=== PATIENT | male | born 1945 | race Caucasian/White ===

== ENCOUNTER 2022-03-21 17:07 | Observation (INO) | payer OTHER ==
--- OUTSIDE RECORDS SUMMARY | 2022-03-21 17:21 | XMS REPORT | Continuity of Care Document ---
:1945 Author Organization [facility] t Address [address] [place] [address] Care Team Providers Name Role Phone STEWART VARELA Primary Care Physician Unavailable KIARRA PARIKH Attending Clinician Unavailable CONNOR ROBERTS Attending Clinician Unavailable Connor Roberts MD Attending Clinician Doctor Unassigned, [place] Attending Clinician Unavailable Eliana Barros RN Attending Clinician Unavailable ANAMIKA ZAPATA Attending Clinician Unavailable Mague Chavez Attending Clinician Anamika Zapata MD Attending Clinician Nurse, [facility] Attending Clinician Unavailable Jennifer Ceballos Attending Clinician JENNIFER NUNEZ Attending Clinician Unavailable Eladio Conde RN Attending Clinician Unavailable Ying Liao Attending Clinician Galina Mack MD Attending Clinician Lab, [facility] Attending Clinician Unavailable Shraddha Velasquez Attending Clinician SHRADDHA DELVALLE Attending Clinician Unavailable Provider, [facility] Attending Clinician Unavailable Stewart Varela MD Attending Clinician YING SANTOS Attending Clinician Unavailable GALINA MACK Attending Clinician Unavailable PATRICIA HAJI Attending Clinician Unavailable ROCHELLE THOMAS Attending Clinician Unavailable Rochelle Tovar Attending Clinician 2, [facility] Lab Attending Clinician Unavailable Pc, [facility] Vascular Room 1 - Attending Clinician Unavailable Kiarra Parikh MD Attending Clinician Only, Ad[facility] Test Attending Clinician Unavailable Daniel Robin MD Attending Clinician DANIEL ROBIN Attending Clinician Unavailable KIARRA PARIKH Admitting Clinician Unavailable ANAMIKA ZAPATA Admitting Clinician Unavailable Anamika Zapata MD Admitting Clinician Kiarra Parikh MD Admitting Clinician Payers Payer Name Policy Type Policy Number Effective Date Expiration Date S [facility] MEDICARE PART A \T\ [id number] 2012 B 00:00:00 AGENCY GENERIC [id number] 2013 00:00:00 MEDICO SUPPLEMENT [id number] 2018 00:00:00 COMMERCIAL [id number] 2013 NON-CONTRACT 00:00:00 GENERIC Problems Condition Condition Condition Status Onset Resolution Last Treating Co mments Source Name Details Category Date Date Treatment Clinician Date 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 7-13 ity of 00:00: [place] 00 Medical Branch Coronary Coronary Disease Active Unive rs artery artery 3-03 ity of disease disease 00:00: [place] involving involving 00 Med[place] coronary coronary artery of artery of [place] heart heart without without angina angina pectoris pectoris Impacted Impacted Disease Active Unive rs cerumen of cerumen of 4-28 it y of right ear right [place] History of History of Disease Active U nivers stroke stroke 4-28 ity of 00:00: [place] 00 Medical Branch Essential Essential Disease Active Uni vers hypertensi hypertensi 4-28 it y of on on 00:00: [place] 00 Medical Branch Stroke Stroke Disease Active 2014-06 Univers syndrome syndrome 2-15 ity of 00:00: [address] Allergies, Adverse Reactions, Alerts Allergy Allergy Status Severity Reaction(s) Onset Inactive Treating Comm ents Source Name Type Date Date Clinician Hydrochl Propensi Active Other - See 2019-06 Rising U nivers orothiaz ty to comments 0- BUN and ity o f dinora adverse 00:00: Cr [place] reaction 00 [facility] s Branch HYDROCHL DRUG Active Other-Cmnt 2019-06 Univ ers OROTHIAZ INGREDI 0-26 ity of [place] 00:00: [address] Social History Social Habit Start Date Stop Date Quantity Comments Source Exposure to 2021-12-17 2021-12-27 Not sure [facility] SARS-CoV-2 00:00:00 07:53:00 [facility] (event) [place] Alcohol intake 2021-12-27 2021-12-27 .14 /d [facility] 00:00:00 00:00:00 [facility] Tobacco use and 2015-07-01 2015-07-01 Smokeless tobacco Un iversity of exposure 00:00:00 00:00:00 non-user [facility] Sex Ass[birth year] Universit y of 00:00:00 00:00:00 [facility] Smoking Status Start Date Stop Date Source Never smoked tobacco [facility] Medications Ordered Filled Start Stop Current Ordering Indication Dosage Frequency Signature Comments Components Source Medication Medication Date Date Medication? Clinician (SIG) Name Name docusate Yes [id number] 100mg Take 1 U nivers 100 mg 7-13 capsule by ity of capsule 00:00: mouth in [place] 00 the Medical morning Branch and 1 capsule in the evening. famotidine Yes [id number] 20mg Take 1 Univers 20 mg 7-13 tablet by ity of tablet 00:00: mouth in [place] 00 the Medical morning Branch and 1 tablet in the evening. levETIRAcet 2021- No [id number] 500mg Take 1 Univers am 500 mg 7-13 07-28 tablet by ity of tablet 00:00: 04:59 mouth in [place] 00 :00 the Medical morning Branch and 1 tablet in the evening. Do all this for 14 days. cetirizine Yes [id number] 10mg Take 1 U nivers (ZYRTEC) 10 6-15 tablet by ity of mg tablet 00:00: mouth 00 daily. Medical Branch benzonatate Yes [id number] 200mg Take 1 Univers 200 mg 6-15 capsule by ity of capsule 00:00: mouth 3 00 (three) Medical times Branch daily as needed for Cough. atorvastati Yes [id number] 80mg Take 1 Univers n 80 mg 5-19 tablet by ity of tablet 00:00: mouth 00 daily. Medical Branch amLODIPine Yes 10mg Take 1 Unive rs 10 mg 2-01 tablet by ity of tablet 00:00: mouth 00 daily. Medical Branch losartan 50 Yes 50mg Take 1 Univ ers mg tablet 4-28 tablet by ity o f 00:00: mouth 00 daily. Medical Branch carvediloL Yes 6.25mg Take 1 Uni vers 6.25 mg 3-03 tablet by ity of tablet 00:00: mouth 2 (two) Medical times Branch daily with meals. azelastine Yes [id number] 1{spray Use 1 Univers 137 mcg 6-07 } [place] in ity of (0.1 %) 00:00: each [place] nasal spray 00 nostril 2 Med ical (two) Branch times daily. Use in each nostril as directed Immunizations Ordered Filled Immunization Date Status Comments Sour e Immunization Name Name Td 2021-12-14 Completed [facility] 00:00:00 [facility] SARS-COV-2 COVID-19 2020-07-14 Completed Unive rsity of MODERNA VACCINE 00:00:[address] [facility] ical Branch SARS-COV-2 COVID-19 2020-06-16 Completed Unive rsity of MODERNA VACCINE 00:00:00 [facility] Td 2017-12-14 Completed [facility] 00:00:00 [facility] Vital Signs Vital Name Observation Time Observation Value Comments Source Systolic blood 2021-12-27 16:37:00 145 mm[Hg] Univer sity of pressure [facility] Diastolic blood 2021-12-27 16:37:00 77 mm[Hg] Unive rsity of pressure [facility] Heart rate 2021-12-27 16:36:00 81 /min Universi ty of [facility] Body temperature 2021-12-27 16:36:00 36.94 [facility] Respiratory rate 2021-12-27 16:36:00 18 /min [facility] Body height 2021-12-27 16:36:00 172.7 cm [facility] Body weight 2021-12-27 16:36:00 72.167 kg [facility] BMI 2021-12-27 16:36:00 24.19 kg/m2 [facility] Oxygen saturation in 2021-12-27 16:36:00 97 /min [facility] Arterial blood by [facility] Pulse oximetry [place] Procedures This patient has no known procedures. Encounters Start End Encounter Admission Attending Care Care Encounter Source Date/Time Date/Time Type Type Clinicians Facility Department ID 2021-04-02 Outpatient R ARELY RUST SIRISHA [id number] Univers 04:15:47 EKIARRA ity [facility] 2021-12-27 2021-12-27 [place] [id number] Univers 11:20:00 11:47:24 CONNOR ity [facility] 2021-12-27 2021-12-27 [facility] 1.2.840.114 [id number] Univers 11:20:00 11:47:24 Care [facility] [id number] it y of [place] 4.2.7.2.686 Jovany as FEROZ?BLEA [phone] [address] MEDICAL OFFICE BUILDING 2021-12-27 2021-12-27 Outpatient [place] [id number] Univers 11:20:00 11:47:24 CONNOR ity [facility] 2021-12-27 2021-12-27 Orders Doctor MARLENA 1.2.840.114 [id number] Univers 00:00:00 00:00:00 Only Unassigned, IVET 350.1.13.10 ity of [place] [facility] 4.2.7.2.686 Jovany as [phone] [place] [address] Branch 2021-12-16 2021-12-16 Transition ONLAN Barros 1.2.840.114 [id number] Univers 00:00:00 00:00:00 of Care Eliana ARMENTA 350.1.13.10 it y of [place].2.7.2.[place] [phone] [facility] 403 Branch 2021-12-14 2021-12-15 Outpatient X ANAMIKA ZAPATA RUST SNS [id number] Univers 17:59:00 17:11:00 ity of [facility] 2021-12-14 2021-12-15 Emergency Karthikeyan Mcdonnellkayla Ward TRICE 1.2.840.1 [id number] Univers 17:59:00 17:11:00 Anamika Zapata 350.1.13.10 ity of [facility] 4.2.7.2.686 Jovany as [phone] [facility] 100 Branch 2021-12-14 2021-12-14 Outpatient [place] [id number] Univers 17:30:00 17:55:01 [facility] 2021-12-14 2021-12-14 Nurse Nurse, [facility] [place] 1.2.840.114 [id number] Univers 17:30:00 17:50:00 Visit Armando [employer] 350.1.13.10 ity [facility] 4.2.7.2.686 [place]ov[place] as FEROZ?BLEA [phone] [address] MEDICAL OFFICE [facility] 2021-12-14 2021-12-14 Outpatient R [place] [id number] Univers 17:30:00 17:30:00 CONNOR mack [facility] 2021-11-17 2021-11-17 Urgent EnriqueJennifer trammell [place] 1.2.840. 114 [id number] Univers 11:20:00 11:40:00 Care Armando [facility] 350.1.13.10 ity [facility] 4.2.7.2.686 Jovany as FEROZ?BLEA [phone] [address] MEDICAL OFFICE [facility] 2021-11-17 2021-11-17 Outpatient [place] [id number] Univers 11:20:00 11:20:00 JENNIFER mack o f [facility] 2021-10-21 2021-10-21 Nurse MARLENA Conde [id number] Univers 00:00:00 00:00:00 Triage Eladio IVET 350.1.13.10 it y of HOSPITAL 4.2.7.2.686 Jovany as [phone] [facility] 019 [place] 2021-10-21 2021-10-21 Telephone Clemencia [place]UST [id number] Univers 00:00:00 00:00:00 Ying JOYCE 350.1.13.10 i ty of [place] [phone] Sd dical NAL 044 [facility] 2021-07-06 2021-07-06 Refill Frederick [place]UST 1.2.840.114 [id number] Univers 00:00:00 00:00:00 Qiamaria victoria JOYCE 350.1.13.10 ity of [place] [phone] Sd dical NAL 059 [facility] 2021-03-24 2021-03-24 [facility] 1.2.840.114 [id number] Univers 00:00:00 00:00:00 Secure Msg Ying Health 350.1.13.10 ity of [place] 4.2.7.2.686 Jovany as Feroz?Blea [phone] [facility] 044 [place] [facility] 2021-01-04 2021-01-04 Orders Doctor MARLENA 1.2.840.114 [id number] Univers 00:00:00 00:00:00 Only Unassigned, IVET 350.1.13.10 ity of [place] [facility] 4.2.7.2.686 Jovany as [phone] [facility] 009 [place] 2020-12-30 2020-12-30 Refill Clemencia [place] 1.2.840.114 [id number] Univers 00:00:00 00:00:00 Ying Health 350.1.13.10 it y of [place] 4.2.7.2.686 Jovany as Professio [phone] [address] One 2020-12-23 2020-12-23 Market Development Analyst Lab, Adc Fam Pob I [place]UST 1.2. 840.114 [id number] Univers 10:58:24 11:18:24 Visit Shraddha Delvalle Health 350.1.13.10 ity of [place] 4.2.7.2.686 Jovany as Professio [phone] [address] One 2020-12-23 2020-12-23 Office [facility] 1.2.840.114 [id number] Univers 10:27:46 10:58:51 Visit Shraddha [facility] 350.1.13.10 i ty of [place] 4.2.7.2.686 Jovany as Professio [phone] [address] One 2020-12-23 2020-12-23 Outpatient [place] [id number] Univers 10:30:00 10:30:00 SHRADDHA faheem [facility] 2020-12-22 2020-12-22 Telephone Clemencia [place] [id number] Univers 00:00:00 00:00:00 Ying Health 350.1.13.10 it y of [place] 4.2.7.2.686 Jovany as Professio [phone] [address] 2020-12-10 2020-12-10 Urgent Provider, [facility] [place] 1.2.840.114 [id number] Univers 10:13:45 10:58:36 Care Shraddha [facility] 350.1.13.10 ity of [place] 4.2.7.2.686 Jovany as Professio [phone] [address] One 2020-12-10 2020-12-10 Outpatient [place] [id number] Univers 10:20:00 10:20:00 SHRADDHA faheem [facility] 2020-12-10 2020-12-10 Orders Doctor MENDIOLA 1.2.840.114 [id number] Univers 00:00:00 00:00:00 Only Unassigned, IVET 350.1.13.10 ity of [place] [facility] 4.2.7.2.686 Jovany as [phone] [facility] 009 [place] 2020-12-10 2020-12-10 Telephone Provider, [place] 1.2.840.114 [id number] Univers 00:00:00 00:00:00 Ang [facility] 350.1.13.10 ity of Care [place] 4.2.7.2.686 Jovany as Professio [phone] [facility] 044 [place] Office Building One 2020-11-17 2020-11-17 Orders Doctor MARLENA 1.2.840.114 [id number] Univers 00:00:00 00:00:00 Only Unassigned, IVET 350.1.13.10 ity of [place] [facility] 4.2.7.2.686 Jovany as [phone] [facility] 009 [place] 2020-09-30 2020-09-30 Patient Raghavendra [place] 1.2.840.114 [id number] Univers 00:00:00 00:00:00 Secure Msg [facility] 350.1.13.10 ity of [place] 4.2.7.2.686 Jovany as Professio [phone] [facility] 044 [facility] One 2020-09-30 2020-09-30 Refill [place] RUST 1.2.840.114 [id number] Univers 00:00:00 00:00:00 Galina Joyce 350.1.13.10 ity of [place] Profess[place] [phone] Sd dicco nal 059 [facility] 2020-09-24 2020-09-24 [facility] 1.2.840.114 [id number] Univers 12:13:59 23:59:00 Encounter Ying Joyce 350.1.13.10 ity of [place]2.[place].2.686 [place] [phone] [facility] 807 [place] 2020-09-24 2020-09-24 Office [facility] 1.2.840.114 [id number] Univers 11:29:55 13:32:02 Visit Ying [facility] 350.1.13.10 it y of [place] 4.2.7.2.686 Jovany as Professio [phone] Sd dical nal 044 [place] Office Building One 2020-09-24 2020-09-24 Outpatient Denia NIURKAALEXANDRO [facility] [id number] Univers 11:30:00 11:30:00 YING mack [facility] 2020-09-24 2020-09-24 Orders Doctor MENDIOLA 1.2.840.114 [id number] Univers 00:00:00 00:00:00 Only Unassigned, IVET 350.1.13.10 ity of [facility] 4.2.7.2.686 Jovany as [phone] [address] 2020-09-09 2020-09-09 Outpatient [place] [id number] Univers 14:00:00 14:00:00 GALINA mack o f [facility] 2020-08-05 2020-08-05 [facility] 1.2.840.114 [id number] Univers 11:18:19 11:40:42 Visit Galina Joyce 350.1.13.10 ity of [place] [phone] Sd nasreen nal 059 [facility] 2020-08-05 2020-08-05 Outpatient R FREDERICK, [facility] [id number] Univers 11:20:00 11:20:00 GALINA mack o f [facility] 2020-07-14 2020-07-14 Outpatient Denia HAJI [facility] [id number] Univers 12:20:00 12:20:00 PATRICIA springy [facility] 2020-06-16 2020-06-16 Outpatient Denia HAJI [facility] [id number] Univers 12:30:00 12:30:00 PATRICIA y [facility] 2020-06-03 2020-06-03 [facility] 1.2.840.114 [id number] Univers 10:11:15 10:36:00 [facility] 350.1.13.10 ity of [place].2.[place] Profess[place] [phone] Sd dical nal 059 [facility] 2020-06-03 2020-06-03 Outpatient R FREDERICK [facility] [id number] Univers 10:20:00 10:20:00 GALINA bauman [facility] 2020-05-28 2020-05-28 Outpatient R JOHN [facility] [id number] Univers 16:00:00 16:00:00 ROCHELLE frederick martha bauman [facility] 2020-05-28 2020-05-28 Laboratory Lab, [facility] Pob I RUST 1.2. 840.114 [id number] Univers 13:21:08 13:41:08 Only Bianka Thomasly [facility] 350.1.13.10 ity of [place] 4.2.7.2.686 Jovany as Professio [phone] Sd dical nal 044 [facility] One 2020-05-04 2020-05-04 Market Development Analyst 2, [facility] Lab [place] 1.2.840.114 [id number] Univers 11:34:50 11:49:50 Visit Galina Mack 350.1.13.10 ity of [place].2.[place] [phone] Sd dical dandy 353 [facility] 2020-05-04 2020-05-04 Appointmen Pc, [facility] Vascular Room 1 - [place] 1.2.840.114 [id number] Univers 10:46:48 11:32:01 t Galina Mack 350.1.13.10 ity of [place]2.7.2.[place] Profess[place] [phone] Sd dical nal 059 [facility] 2020-05-04 2020-05-04 Market Development Analyst Pc, [facility] Vascular Room 1 - [place] 1.2.840.114 [id number] Univers 10:46:08 11:31:52 Visit Galina Mack 350.1.13.10 ity of [place].2.[place] [phone] Sd dical nal 059 [facility] 2020-05-04 2020-05-04 Office Frederick, [place] 1.2.840.114 [id number] Univers 10:01:27 10:47:29 Visit Galina [place] 350.1.13.10 ity of [place].2.7.2.[place] Profess[place] [phone] [address] 2020-05-04 2020-05-04 Outpatient R [facility] [id number] Univers 10:00:00 10:00:00 GALINA ity o f [facility] 2020-03-30 2020-03-30 Office [facility] 1.2.840.114 [id number] Univers 08:25:42 09:01:34 Visit Galina [place] 350.1.13.10 ity of [place].2.[place] Profess[place] [phone] [address] 2020-03-30 2020-03-30 Outpatient R [facility] [id number] Univers 08:40:00 08:40:00 GALINA springy o f [facility] 2020-03-26 2020-03-26 Outpatient R [facility] [id number] Univers 08:40:00 08:40:00 GALINA springy o [facility] 2020-03-26 2020-03-26 Telephone [facility] 1.2.165.118 [id number] Univers 00:00:00 00:00:00 Enricomiguejun [place] 350.1.13.10 ity of [place] 4.2.7.2.[place] Profess[place] [phone] [address] 2020-03-16 2020-03-16 Refill [facility] 1.2.840.114 [id number] Univers 00:00:00 00:00:00 Qiangjun [place] 350.1.13.10 ity of [place].7.2.[place] Profess[place] [phone] [address] 2019-12-19 2019-12-19 Orders Doctor MARLENA 1.2.840.114 [id number] Univers 00:00:00 00:00:00 Only Unassigned, IVET 350.1.13.10 ity of [place] [facility] 4.2.7.2.686 Jovany as [phone] [facility] 009 [place] 2019-12-12 2019-12-12 Hospital Arely [place] 1.2.840.114 [id number] Univers 06:56:00 09:58:00 Encounter Kiarra clark 350.1.13.10 ity of [place]2.[place].2.[place] [phone] [facility] 071 [place] 2019-12-12 2019-12-12 Telephone Arely MENDIOLA 1.2.840.114 [id number] Univers 00:00:00 00:00:00 Kiarra clark 350.1.13.10 ity of HOSPITAL 4.2.7.2.686 Jovany as [phone] [facility] 019 [place] 2019-12-11 2019-12-11 Laboratory Only, Adc Test [place] 1.2.840. 114 [id number] Univers 14:44:30 14:59:30 Only Kiarra Parikh 350.1.1 3.10 ity of [place] 4.2.[place].2.[place] [phone] [facility] 353 [place] 2019-12-11 2019-12-11 Outpatient R [facility] [id number] Univers 14:30:00 14:30:00 ity of [facility] 2019-12-10 2019-12-10 Outpatient [place] [id number] Univers 10:20:00 10:20:00 GALINA mack o f [facility] 2019-12-10 2019-12-10 Orders Doctor MARLENA 1.2.840.114 [id number] Univers 00:00:00 00:00:00 Only Unassigned, IVET 350.1.13.10 ity of [place] [facility] 4.2.7.2.686 Jovany as [phone] [address] 2019-08-22 2019-08-22 Office Mynor [place] 1.2.840.114 [id number] Univers 10:11:52 10:42:04 Visit VeronicaAMS-Qi [employer] 350.1.13.10 ity of [place] 4.2.7.2.686 Jovany as Professio [phone] Sd dical [place] [address] Branch Office Building One 2019-08-22 2019-08-22 Outpatient Denia ROBIN [facility] [id number] Univers 10:15:00 10:15:00 DANIEL bauman [facility] 2019-08-22 2019-08-22 Orders Doctor MARLENA 1.2.840.114 [id number] Univers 00:00:00 00:00:00 Only Unassigned, IVET 350.1.13.10 ity of [place] [facility] 4.2.7.2.686 Jovany as [phone] [address] 2018-12-13 2018-12-13 Outpatient Denia MACK [facility] [id number] Univers 07:45:00 07:45:00 GALINA bauman [facility] 2018-12-04 2018-12-04 Outpatient R ENRIQUE [facility] [id number] Univers 12:25:48 23:59:00 JENNIFER bauman [facility] Results This patient has no known results.
--- NOTE | 2022-03-21 19:23 | RAD REPORT ---
EXAM DESCRIPTION: RAD - Chest Single View - 03/21/2022 7:08 pm CLINICAL HISTORY: stroke-like symptoms Chest pain. COMPARISON: No comparisons FINDINGS: Portable technique limits examination quality. The lungs are grossly clear. The heart is normal in size. No displaced fractures.Aortic atheroscleros is. IMPRESSION: No acute intrathoracic process suspected.
[2022-03-21] MEDS ORDERED: NA CHLORIDE 0.9% 1,000 ML ONE (19:45)
[2022-03-21 19:58] LABS: Absolute Lymphocytes (CBC) 1.2 K/uL (0.7-4.9); Hematocrit 41.5 % (39.6-49.0); Lymphocytes % 18.6 % (15.3-44.8); MCV 94.6 fL (80-100); MPV 7.8 fL (7.6-11.3); RBC Red Blood Cell Count 4.39 M/uL (4.33-5.43)
[2022-03-21 20:12] LABS: Protime INR 1.01
[2022-03-21 20:25] LABS: Bilirubin Total 0.7 mg/dL (0.2-1.0); Potassium 3.7 mmol/L (3.5-5.1); Protein, Total 7.9 g/dL (6.4-8.2)
[2022-03-21 20:27] LABS: Troponin High Sensitivity 73.6 pg/mL (<58.9)
--- NOTE | 2022-03-21 21:09 | ER ---
Nurse's Notes [facility] Name: Jorden Acosta Age: 76 yrs Sex: Male : 1945 Arrival Date: 03/21/2022 Time: 17:09 Bed 25 Private MD: Diagnosis: Cerebral infarction, unspecified;Slurred speech Presentation: 03/21 17:13 Chief complaint: Patient states: noticed change in speech on Monday afternoon vg1 03/19/22. Denies headache or blurred vision. Stated "slight weakness to left arm". Coronavirus screen: Vaccine status: Patient reports receiving the 2nd dose of the covid vaccine. Client denies travel out of the [place] in the last 14 days. Ebola Screen: Patient negative for fever greater than or equal to 101.5 degrees Fahrenheit, and additional compatible Ebola Virus Disease symptoms Patient denies exposure to infectious person. An acute neurological deficit is present. The charge nurse has been notified. Initial Sepsis Screen: Does the patient meet any 2 criteria? No. Patient's initial sepsis screen is negative. Does the patient have a suspected source of infection? No. Patient's initial sepsis screen is negative. Risk Assessment: Do you want to hurt yourself or someone else? Patient reports no desire to harm self or others. Onset of symptoms. 17:13 Method Of Arrival: Wheelchair vg1 17:13 Acuity: JACIEL 2 vg1 Triage Assessment: 17:18 The onset of the patients symptoms was March 19, 2022 at 12:00. General: Appears in vg1 no apparent distress. uncomfortable, Behavior is calm, cooperative. Pain: Denies pain. Neuro: Level of Consciousness is awake, alert, obeys commands, Oriented to person, place, time, situation, Internal Communications Intern are equal bilaterally Moves all extremities. Gait is shuffling, Speech is slurred, Facial symmetry appears normal, Reports weakness in left arm. Historical: - Allergies: 17:18 No Known Allergies; vg1 - PMHx: 17:18 Hypertension; vg1 - Immunization history:: Client reports receiving the 2nd dose of the Covid vaccine. - Social history:: Smoking status: Patient denies any tobacco usage or history of. - Family history:: not pertinent. - Hospitalizations: : No recent hospitalization is reported. Screenin:45 Abuse screen: Denies threats or abuse. Denies injuries from another. Nutritional ld1 screening: No deficits noted. Tuberculosis screening: No symptoms or risk factors identified. Fall Risk None identified. Assessment: 19:45 VAN Scoring: Arm Drift: Patients demonstrates NO arm weakness. Patient is VAN Negative. ld1 Visual Disturbance: No visual disturbance noted. Aphasia: Expressive aphasia noted. Provider notified of +VAN scoring. Patient has been NPO before screening. The patient is alert, and able to follow commands. The patient exhibits slurred or garbled speech. The patient is exhibiting difficulty speaking. The patient does not exhibit difficulty understanding words. The patient is able to swallow own secretions with no drooling or need for suction. Patient tolerated one teaspoon of water. No drooling, immediate coughing, gurgling, or clearing of the throat was noted. The patient tolerated 90mL of water. No drooling, immediate coughing, gurgling, or clearing of the throat was noted. The patient passed the bedside swallow screening. Oral medications may be given as ordered. Contact Physician for further diet orders. Provider notified of bedside swallow screening results: Brian Clark MD. TNKase (Tenecteplase) Screening: Contraindications: Patient reports onset of signs and symptoms of stroke greater than 6 hours ago: Yes. General: Appears in no apparent distress. comfortable, Behavior is calm, cooperative, appropriate for age. Pain: Denies pain. Neuro: Level of Consciousness is awake, alert, obeys commands, Oriented to person, place, time, situation, Internal Communications Intern are equal bilaterally Gait is steady, Speech is slurred. Cardiovascular: Capillary refill < 3 seconds Patient's skin is warm and dry. Rhythm is. Respiratory: Airway is patent Respiratory effort is even, unlabored. GI: Abdomen is flat, non-distended. : No signs and/or symptoms were reported regarding the genitourinary system. EENT: No signs and/or symptoms were reported regarding the EENT system. Derm: No signs and/or symptoms reported regarding the dermatologic system. Musculoskeletal: No signs and/or symptoms reported regarding the musculoskeletal system. Vital Signs: 17:13 BP 156 / 80; Pulse 98; Resp 16; Temp 98.7; Pulse Ox 99% on R/A; Weight 74.84 kg; Height vg1 5 ft. 9 in. (175.26 cm); Pain 0/10; 19:45 BP 159 / 92; ld1 20:21 BP 154 / 87; Pulse 85; Resp 18; Pulse Ox 98% on R/A; ld1 17:13 Body Mass Index 24.37 (74.84 kg, 175.26 cm) vg1 NIH Stroke Scale Scores: 19:45 NIHSS Score: 1 ld1 19:46 NIHSS Score: 1 speech language pathologist prn Course: 17:09 Patient arrived in ED. rg4 17:18 Triage completed. vg1 17:18 Arm band placed on. vg1 17:44 Glenda Johnson MD is Attending Physician. sd2 19:05 Attending Physician role handed off by Glenda Johnson MD rn 19:05 Brian Clark MD is Attending Physician. rn 19:09 XRAY Chest (1 view) In Process Unspecified. EDMS 19:30 Katerine Sotelo, JOEY is Primary Nurse. ld1 19:44 Inserted saline lock: 18 gauge in right antecubital area, using aseptic technique. ld1 Blood collected. 19:45 Patient has correct armband on for positive identification. Placed in gown. Bed in low ld1 position. Call light in reach. Side rails up X2. monitoring manager on. Pulse ox on. NIBP on. Door closed. Noise minimized. Warm blanket given. 19:45 No provider procedures requiring assistance completed. ld1 21:08 Marylu Harrison MD is Hospitalizing Provider. rn 21:35 Head angio In Process Unspecified. EDMS 21:35 Head Brain Wo Cont In Process Unspecified. EDMS 21:35 Neck Angio In Process Unspecified. EDMS Administered Medications: 19:51 Drug: NS 0.9% 1000 ml Route: IV; Rate: 1000 ml; Site: right antecubital; ld1 22:44 Drug: Aspirin Chewable Tablet 324 mg Route: PO; fu 22:48 Drug: foLIC Acid 1 mg Route: IVPB; Site: right antecubital; fu Medication: 19:45 VIS not applicable for this client. ld1 Point of Care Testing: Blood Glucose: 17:18 Blood Glucose: 123 mg/dL; vg1 Ranges: Outcome: 21:08 Decision to Hospitalize by Provider. rn 03/22 12:53 Patient left the ED. NIH Stroke Scale - NIH Stroke Score Date: 03/21/2022 Time: 19:45 Total Score = 1 1a. Level of Consciousness (LOC) - 0(Alert) 1b. Level of Consciousness (LOC) (Month \\T\\ Age) - 0(Both) 1c. LOC Commands (Open \\T\\ Closes Eyes/Tennis Camp Instructor) - 0(Both) 2. Best Gaze (Lateral Gaze Paresis) - 0(Normal) 3. Visual Field Loss - 0(No visual loss) 4. Facial Palsy - 0(Normal) 5a. Left Arm: Motor (10-second hold) - 0(No drift) 5b. Right Arm: Motor (10-second hold) - 0(No drift) 6a. Left Leg: Motor (5-second hold - always test supine) - 0(No drift) 6b. Right Leg: Motor (5-second hold - always test supine) - 0(No drift) 7. Limb Ataxia (finger/nose \\T\\ heel/conti - test with eyes open) - 0(Absent) 8. Sensory Loss (pinprick arms/legs/face) - 0(Normal) 9. Best Language: Aphasia (description/naming/reading) - 0(No aphasia) 10. Dysarthria (speech clarity - read or repeat words) - 1(Mild to Moderate) 11. Extinction and Inattention (visual/tactile/auditory/spatial/personal) - 0(No abnormality) Initials: ld1 NIH Stroke Scale - NIH Stroke Score Date: 03/21/2022 Time: 19:46 Total Score = 1 1a. Level of Consciousness (LOC) - 0(Alert) 1b. Level of Consciousness (LOC) (Month \\T\\ Age) - 0(Both) 1c. LOC Commands (Open \\T\\ Closes Eyes/Tennis Camp Instructor) - 0(Both) 2. Best Gaze (Lateral Gaze Paresis) - 0(Normal) 3. Visual Field Loss - 0(No visual loss) 4. Facial Palsy - 0(Normal) 5a. Left Arm: Motor (10-second hold) - 0(No drift) 5b. Right Arm: Motor (10-second hold) - 0(No drift) 6a. Left Leg: Motor (5-second hold - always test supine) - 0(No drift) 6b. Right Leg: Motor (5-second hold - always test supine) - 0(No drift) 7. Limb Ataxia (finger/nose \\T\\ heel/cnoti - test with eyes open) - 0(Absent) 8. Sensory Loss (pinprick arms/legs/face) - 0(Normal) 9. Best Language: Aphasia (description/naming/reading) - 0(No aphasia) 10. Dysarthria (speech clarity - read or repeat words) - 1(Mild to Moderate) 11. Extinction and Inattention (visual/tactile/auditory/spatial/personal) - 0(No abnormality) Initials: rn Signatures: Dispatcher [employer] EDBrian Martins MD MD rn Smirch, Shelby RN Maryse Huynh rg4 Herbert Ortiz RN Nickie Ramirez RN RN 1 Katerine Sotelo RN JOEY [email or web address] Glenda Johnson MD MD sd2
--- NOTE | 2022-03-21 21:09 | EDPHYS ---
Physician Documentation [facility] Name: Jorden Acosta Age: 76 yrs Sex: Male : 1945 Arrival Date: 03/21/2022 Time: 17:09 Bed 25 Private MD: ED Physician Brian Clark HPI: 03/21 20:17 This 76 yrs old Male presents to ER via Wheelchair with complaints of Slurred Speech. rn 20:17 The patient presents to the emergency department with a speech or higher order brain rn function problem, slurred speech. Onset: The symptoms/episode began/occurred 2 day(s) ago. Context: occurred while the patient was at rest. Associated signs and symptoms: Pertinent negatives: altered mental status, fever, seizure, syncope, blurred vision, double vision, visual field changes, loss of vision, weakness. Severity of symptoms: At their worst the symptoms were moderate in the emergency department the symptoms are unchanged. Current symptoms: slurred speech. The patient has experienced a previous episode. The patient has not recently seen a physician. Pt reports slurred speech that began 2 days ago, not improving or getting worse. NO other focal neuro complaint. Reports stroke in past, was also speech, never fully improved, became aware of these symptoms 2 days ago, constant. Does not take aspirin or other anticoagulant. . Historical: - Allergies: 17:18 No Known Allergies; vg1 - PMHx: 17:18 Hypertension; vg1 - Immunization history:: Client reports receiving the 2nd dose of the Covid vaccine. - Social history:: Smoking status: Patient denies any tobacco usage or history of. - Family history:: not pertinent. - Hospitalizations: : No recent hospitalization is reported. ROS: 20:17 Constitutional: Negative for fever, chills, and weight loss, Eyes: Negative for injury, rn pain, redness, and discharge, Neck: Negative for injury, pain, and swelling, Cardiovascular: Negative for chest pain, palpitations, and edema, Respiratory: Negative for shortness of breath, cough, wheezing, and pleuritic chest pain, Abdomen/GI: Negative for abdominal pain, nausea, vomiting, diarrhea, and constipation, Back: Negative for injury and pain, MS/Extremity: Negative for injury and deformity, Skin: Negative for injury, rash, and discoloration, Neuro: Negative for headache, weakness, numbness, tingling, and seizure. Exam: 20:17 Constitutional: This is a well developed, well nourished patient who is awake, alert, rn and in no acute distress. Head/Face: Normocephalic, atraumatic. Eyes: Periorbital areas with no swelling, redness, or edema. Cardiovascular: Regular rate and rhythm. No pulse deficits. Respiratory: No increased work of breathing, no retractions or nasal flaring. Abdomen/GI: Soft, non-tender Skin: Warm, dry MS/ Extremity: Pulses equal, no cyanosis. Neurovascular intact. Full, normal range of motion. Equal circumference. Neuro: Awake and alert, GCS 15, oriented to person, place, time, and situation. No facial droop. + mild slurred speech. Motor strength 5/5 in all extremities. Sensory grossly intact. Cerebellar exam normal. Shuffling gait. 21:03 ECG was reviewed by the Attending Physician. rn Vital Signs: 17:13 BP 156 / 80; Pulse 98; Resp 16; Temp 98.7; Pulse Ox 99% on R/A; Weight 74.84 kg; Height vg1 5 ft. 9 in. (175.26 cm); Pain 0/10; 19:45 BP 159 / 92; ld1 20:21 BP 154 / 87; Pulse 85; Resp 18; Pulse Ox 98% on R/A; ld1 17:13 Body Mass Index 24.37 (74.84 kg, 175.26 cm) vg1 NIH Stroke Scale Scores: 19:45 NIHSS Score: 1 ld1 19:46 NIHSS Score: 1 rn MDM: 17:44 Patient medically screened. sd2 21:07 Data reviewed: vital signs, nurses notes, lab test result(s), EKG, and as a result, I rn will admit patient. Counseling: I had a detailed discussion with the patient and/or guardian regarding: the historical points, exam findings, and any diagnostic results supporting the discharge/admit diagnosis, lab results, the need for further work-up and treatment in the hospital. Response to treatment: There is no appreciated change of the patient's symptoms at this time, and as a result, I will admit patient. Admission orders: after a detailed discussion of the patient's condition and case, the admit orders are written by me. 21:08 ED course: Pt 2 days into CVA, elevated troponin, has been eating/drinking for last 2 rn days without difficulty, will admit for further evaluation and care. . 03/21 17:33 Order name: Glucose, Ancillary Testing; Complete Time: 18:01 EDMS 03/21 18:30 Order name: CBC with Diff; Complete Time: 21:07 sd2 03/21 18:30 Order name: CMP; Complete Time: 21:07 sd2 03/21 18:30 Order name: Troponin High Sensitivity; Complete Time: 21:07 sd2 03/21 18:30 Order name: PT-INR; Complete Time: 21:07 sd2 03/21 18:30 Order name: Ptt, Activated; Complete Time: 21:07 sd2 03/21 19:09 Order name: ETOH Level; Complete Time: 21:07 03/21 19:10 Order name: Urine Drug Screen 03/21 19:54 Order name: Glucose, Ancillary Testing; Complete Time: 21:07 EDMS 03/22 00:02 Order name: SARS-COV-2 Antigen Rapid [facility] 03/22 00:33 Order name: SARS-COV-2 Antigen Rapid EDAZ 03/22 03:04 Order name: CBC with Automated Diff EDMS 03/22 03:38 Order name: Sedimentation Rate, [place] EDMS 03/22 03:41 Order name: Basic Metabolic Panel EDAZ 03/21 17:25 Order name: CT Head Brain wo Cont vg1 03/21 18:30 Order name: XRAY Chest (1 view); Complete Time: 21:07 sd2 03/21 19:09 Order name: CT Head C Spine rn 03/21 19:17 Order name: CT Head Brain wo Cont rn 03/21 19:17 Order name: CT Head Angio rn 03/21 19:17 Order name: Neck Angio CT rn 03/21 21:15 Order name: Head angio; Complete Time: 23:26 EDMS 03/21 21:15 Order name: Head Brain Wo Cont; Complete Time: 23:26 EDMS 03/21 21:15 Order name: Neck Angio; Complete Time: 23:26 EDMS 03/22 03:41 Order name: Creatine Phosphokinase EDMS 03/22 03:41 Order name: CKMB Creatine Kinase MB EDMS 03/22 03:41 Order name: Lipid Profile EDMS 03/22 03:41 Order name: Magnesium EDMS 03/22 03:41 Order name: Thyroid Stimulating Hormone EDMS 03/22 03:58 Order name: Troponin High Sensitivity EDMS 03/21 18:30 Order name: EKG - Nurse/Tech; Complete Time: 19:44 sd2 EC:03 Rate is 77 beats/min. Rhythm is regular. QRS [place] is Normal. [place] interval is prolonged rn at 220 msec. QRS interval is normal. QT interval is normal. No Q waves. T waves are Normal. No ST changes noted. Clinical impression: NSR w/ Non-specific ST/T Changes. Interpreted by me. Reviewed by me. Administered Medications: 19:51 Drug: NS 0.9% 1000 ml Route: IV; Rate: 1000 ml; Site: right antecubital; ld1 22:44 Drug: Aspirin Chewable Tablet 324 mg Route: PO; fu 22:48 Drug: foLIC Acid 1 mg Route: IVPB; Site: right antecubital; fu Point of Care Testing: Blood Glucose: 17:18 Blood Glucose: 123 mg/dL; vg1 Ranges: Critical Glucose Levels:Adult <50 mg/dl or >400 mg/dl <40 mg/dl or >180 mg/dl Disposition Summary: 03/21/22 21:08 Hospitalization Ordered Hospitalization Status: Observation rn Provider: Marylu Harrison rn Condition: Stable rn Problem: new rn Symptoms: are unchanged rn Bed/Room Type: Standard rn Location: [facility] ER HOLD(03/21/22 21:14) cg Room Assignment: ERHOLD-(03/21/22 21:14) cg Diagnosis - Cerebral infarction, unspecified rn - Slurred speech rn Forms: - Medication Reconciliation Form rn - SBAR form rn NIH Stroke Scale - NIH Stroke Score Date: 03/21/2022 Time: 19:45 Total Score = 1 1a. Level of Consciousness (LOC) - 0(Alert) 1b. Level of Consciousness (LOC) (Month \T\ Age) - 0(Both) 1c. LOC Commands (Open \T\ Closes Eyes/Practice Advisor) - 0(Both) 2. Best Gaze (Lateral Gaze Paresis) - 0(Normal) 3. Visual Field Loss - 0(No visual loss) 4. Facial Palsy - 0(Normal) 5a. Left Arm: Motor (10-second hold) - 0(No drift) 5b. Right Arm: Motor (10-second hold) - 0(No drift) 6a. Left Leg: Motor (5-second hold - always test supine) - 0(No drift) 6b. Right Leg: Motor (5-second hold - always test supine) - 0(No drift) 7. Limb Ataxia (finger/nose \T\ heel/conti - test with eyes open) - 0(Absent) 8. Sensory Loss (pinprick arms/legs/face) - 0(Normal) 9. Best Language: Aphasia (description/naming/reading) - 0(No aphasia) 10. Dysarthria (speech clarity - read or repeat words) - 1(Mild to Moderate) 11. Extinction and Inattention (visual/tactile/auditory/spatial/personal) - 0(No abnormality) Initials: ld1 NIH Stroke Scale - NIH Stroke Score Date: 03/21/2022 Time: 19:46 Total Score = 1 1a. Level of Consciousness (LOC) - 0(Alert) 1b. Level of Consciousness (LOC) (Month \T\ Age) - 0(Both) 1c. LOC Commands (Open \T\ Closes Eyes/Practice Advisor) - 0(Both) 2. Best Gaze (Lateral Gaze Paresis) - 0(Normal) 3. Visual Field Loss - 0(No visual loss) 4. Facial Palsy - 0(Normal) 5a. Left Arm: Motor (10-second hold) - 0(No drift) 5b. Right Arm: Motor (10-second hold) - 0(No drift) 6a. Left Leg: Motor (5-second hold - always test supine) - 0(No drift) 6b. Right Leg: Motor (5-second hold - always test supine) - 0(No drift) 7. Limb Ataxia (finger/nose \T\ heel/conti - test with eyes open) - 0(Absent) 8. Sensory Loss (pinprick arms/legs/face) - 0(Normal) 9. Best Language: Aphasia (description/naming/reading) - 0(No aphasia) 10. Dysarthria (speech clarity - read or repeat words) - 1(Mild to Moderate) 11. Extinction and Inattention (visual/tactile/auditory/spatial/personal) - 0(No abnormality) Initials: rn Signatures: Dispatcher [employer] EDBrian Martins MD MD rn Garcia, Cindy, RN RN cg Umadhay Herbert, RN RN Nickie Lundberg, RN RN vg1 Katerine Sotelo, RN RN antione1 Glenda Johnson MD MD sd2 Nani Hammonds PA-C PA-C sb4 Corrections: (The following items were deleted from the chart) 21:08 Telemetry/MedSurg (observation) jennifer villareal 21:08 jennifer villareal
--- NOTE | 2022-03-21 21:44 | RAD REPORT ---
EXAM DESCRIPTION: CT - Head Brain Wo Cont - 03/21/2022 9:33 pm CLINICAL HISTORY: slurred speech, weakness Headache, drowsiness, CVA symptomology COMPARISON: HEAD BRAIN W O CONTRAST dated 07/05/2013 TECHNIQUE: All CT scans are performed using dose optimization technique as appropriate and may inclu de automated exposure control or mA/KV adjustment according to patient size. FINDINGS: No intracranial hemorrhage, hydrocephalus or extra-axial fluid collection.Moderate general ized brain atrophy is present with moderate periventricular and deep white matter chronic microvascul ar ischemic changes.No areas of brain edema or evidence of midline shift. The paranasal sinuses and mastoids are clear. The calvarium is intact. IMPRESSION: No acute intracranial abnormality. If there is continued clinical concern for CVA, MR imaging of the brain would be recommended.
--- NOTE | 2022-03-21 21:48 | RAD REPORT ---
EXAM DESCRIPTION: CT - Head angio - 03/21/2022 9:33 pm CLINICAL HISTORY: slurred speech, weakness Headache, drowsiness, CVA symptomology COMPARISON: Head Brain Wo Cont dated 03/21/2022; HEAD BRAIN W O CONTRAST dated 07/05/2013 TECHNIQUE: CT angiography of the head was performed with MIPs. All CT scans are performed using dose optimization technique as appropriate and may include automated exposure control or mA/KV adjustment according to patient size. FINDINGS: No evidence of aneurysm is detected. No flow-limiting stenosis or vascular malformation id entified. Antegrade flow is seen in the vertebral arteries. Left vertebral artery dominant. Right vertebral art mary likely terminates in PICA, normal variant. The visualized dural venous sinuses are patent. IMPRESSION: No significant flow abnormality is detected.
--- NOTE | 2022-03-21 21:54 | RAD REPORT ---
EXAM DESCRIPTION: CT - Neck Angio - 03/21/2022 9:33 pm CLINICAL HISTORY: slurred speech, weakness Headache, drowsiness, CVA symptomology COMPARISON: No comparisons TECHNIQUE: CT angiography of the neck vessels was performed with MIPs. All CT scans are performed using dose optimization technique as appropriate and may include automated exposure control or mA/KV adjustment according to patient size. FINDINGS: A left aortic arch is identified with normal three vessel configuration of the great vesse ls. Moderate hard plaquing is seen aortic arch region. Moderate hard plaquing is seen involving both carotid bulbs. Mild soft plaque is seen involving the l eft common carotid artery mid aspect with mild narrowing. Hard plaque involving the mid right common carotid artery also present. Stenosis in both of these regions is estimated less than 50%. Hard plaquing results in stenosis of the right carotid bulb estimated at the 50-70% based on NASCET c riteria. Focal hard plaque is seen involving the left carotid bulb with estimated narrowing based on NASCET criteria a 50%. Normal flow is seen within both vertebral arteries. Left vertebral artery is dominant. IMPRESSION: [id number] bilateral carotid stenosis is identified, most significant at the level of the right carotid bulb where there is estimated at 50-70%.
[2022-03-21] MEDS ORDERED: ASPIRIN 81 MG CHEWABLE TABLET ONE (22:29)
[2022-03-21] MEDS ORDERED: FOLIC ACID 5 MG/ML VIAL ONE (22:31)
[2022-03-21] MEDS ORDERED: NA CHLORIDE 0.9% 50 ML IV ONE (22:43)
[2022-03-22] MEDS ORDERED: ONDANSETRON 4 MG/2 ML VIAL IV PRN (00:17)
[2022-03-22] MEDS ORDERED: ACETAMINOPHEN 500 MG TAB PO PRN (00:17)
[2022-03-22] MEDS ORDERED: NA CHLORIDE 0.9% 1,000 ML IV SCH (00:17)
[2022-03-22] MEDS ORDERED: NA CHLORIDE 0.9% 1,000 ML ONE (00:32)
[2022-03-22 00:33] LABS: SARS-CoV-2 Antigen Rapid Res Negative (Negative)
[2022-03-22 00:47] LABS: Barbiturates NEGATIVE (NEGATIVE); Benzodiazepines NEGATIVE (NEGATIVE); Cocaine NEGATIVE (NEGATIVE); METHAMPHETAM NEGATIVE (NEGATIVE); Methadone NEGATIVE (NEGATIVE); Opiates NEGATIVE (NEGATIVE); Phencyclidine NEGATIVE (NEGATIVE); THC Cannibis NEGATIVE (NEGATIVE)
--- NOTE | 2022-03-22 01:33 | P.HP ---
Certification for Inpatient Patient admitted to: Observation With expected LOS: <2 Midnights Patient will require the following post-hospital care: None Practitioner: I am a practitioner with admitting privileges, knowledge of patient current condition, hospital course, and medical plan of care. Services: Services provided to patient in accordance with Admission requirements found in Title 42 Section 412.3 of the Code of Federal Regulations Patient History Date of Service: 03/22/22 Reason for admission: CVA History of Present Illness: Patient is a 76-year-old male with past medical history of hypertension and CVA who presented to the ED with complaints of slurred slurred speech. He reports that the symptoms began 2 days ago and denies any other symptoms. He has been eating and drinking appropriately. He reports that he had a CVA back in 2013 and also had speech deficits that never fully recovered. He has not been taking any anticoagulation. Labs unremarkable except for troponin HS of 79.3. Patient denies any chest pain. His head CT and CTA are negative. CT neck angio showed "[id number] bilateral carotid stenosis is identified, most significant at the level of the right carotid bulb where there is estimated at 50-70%." He was given 1L fluid, 324 mg aspirin, and folic acid in ED. Patient is admitted for further management. Allergies No Known Allergies Allergy (Verified 07/06/13 23:08) Home Medications: hydroCHLOROthiazide [Hydrodiuril*] 25 mg PO DAILY 07/05/13 Aspirin Tab [Quirino Aspirin*] 325 mg PO DAILY #30 tab 07/08/13 Folic Acid [Folic Acid*] 1 mg PO DAILY #30 tab 07/08/13 Metoprolol Tartrate [Lopressor*] 50 mg PO BID 6AM 6PM #60 tab 07/08/13 - Past Medical/Surgical History Diabetic: No -: HTN -: CVA -: skin cancer removal Psychosocial/ Personal History: Patient lives at home. - Family History Family History: Reviewed- Non-Contributory - Social History Smoking Status: Never smoker Alcohol use: Yes CD- Drugs: No Caffeine use: Yes Place of Residence: Home Review of Systems Neurological: Change in Speech Physical Examination - Physical Exam General: Alert, In no apparent distress HEENT: Atraumatic, PERRLA, EOMI, Sclerae nonicteric Neck: Supple, 2+ carotid pulse no bruit, No LAD, Without JVD or thyroid abnormality Respiratory: Clear to auscultation bilaterally, Normal air movement Cardiovascular: Regular rate/rhythm, Normal S1 S2 Gastrointestinal: Normal bowel sounds, No tenderness Musculoskeletal: No tenderness Integumentary: No rashes Neurological: Normal strength at 5/5 x4 extr, Normal tone, Normal affect, Abnormal speech - Studies Laboratory Data (last 24 hrs) 03/21/22 19:42: PT 11.1, INR 1.01, APTT 29.4 03/21/22 19:42: Sodium 138, Potassium 3.7, BUN 21 H, Creatinine 0.97, Glucose 95, Total Bilirubin 0.7, AST 29, ALT 46, Alkaline Phosphatase 97 03/21/22 19:42: WBC 6.70, Hgb 14.1, Hct 41.5, Plt Count 219 Assessment and Plan - Problems (Diagnosis) (1) Hypertension Current Visit: Yes Status: Chronic Qualifiers: Hypertension type: primary hypertension Qualified Code(s): I10 - Essential (primary) hypertension (2) CVA (cerebral vascular accident) Current Visit: Yes Status: Acute Qualifiers: CVA mechanism: unspecified Qualified Code(s): I63.9 - Cerebral infarction, unspecified (3) Slurred speech Current Visit: Yes Status: Acute (4) Elevated troponin Current Visit: Yes Status: Acute - Plan -Patient is admitted for observation -MRI stroke protocol, echo, and carotid US ordered -Neurology consulted -Patient passed bedside swallow. heart healthy diet -Lipid panel and TSH ordered -Physical therapy consult -Troponin slightly elevated. Patient denies chest pain. Trend serial cardiac enzymes -Aspirin, plavix, folic acid, and atorvastatin daily -Gentle IV hydration -Monitor and replete electrolytes per protocol -Reconcile and continue home medications -Lovenox for VTE ppx -Full code Discharge Plan: Home Plan to discharge in: 24 Hours - Advance Directives Does patient have a Living Will: No Does patient have a Durable POA for Healthcare: No - Code Status/Comfort Care Code Status Assessed: Yes (Full) Critical Care: No Time Spent Managing Pts Care (In Minutes): 50
[2022-03-22 02:29] VITALS: O2SAT 94; BMI 24.3
[2022-03-22 02:56] LABS: Absolute Lymphocytes (CBC) 1.8 K/uL (0.7-4.9); Hematocrit 39.3 % (39.6-49.0); Lymphocytes % 24.2 % (15.3-44.8); MCV 94.9 fL (80-100); MPV 7.8 fL (7.6-11.3); RBC Red Blood Cell Count 4.15 M/uL (4.33-5.43)
[2022-03-22 03:33] LABS: CKMB Creatine Kinase MB 2.9 ng/mL (1.0-3.6); Magnesium 1.8 mg/dL (1.8-2.4); Potassium 3.3 mmol/L (3.5-5.1); Thyroid Stimulating Hormone 0.521 uIU/mL (0.360-3.740)
[2022-03-22] MEDS ORDERED: MAGNESIUM SULFATE 1 gm IVPB 1 GM/100 ML BAG IV ONE ×2 (05:00→05:04)
[2022-03-22] MEDS ORDERED: POTASSIUM 25 MEQ EFFERV TAB ONE (05:04)
[2022-03-22] MEDS ORDERED: POTASSIUM 25 MEQ EFFERV TAB PO ONE (06:00)
[2022-03-22] MEDS ORDERED: INFLUENZA VACCINE (for 6+ mo) 0.5 ML DOSE IMVAC ONE (08:00)
[2022-03-22] MEDS ORDERED: PNEUMOCOCCAL VACCINE 0.5 ML IMVAC ONE (08:00)
[2022-03-22] MEDS ORDERED: FOLIC ACID 1 MG TABLET ONE (08:18)
[2022-03-22] MEDS ORDERED: CLOPIDOGREL 75 MG TABLET ONE (08:18)
[2022-03-22] MEDS ORDERED: ASPIRIN EC 81 MG TAB PO ONE (08:18)
[2022-03-22] MEDS ORDERED: ENOXAPARIN 40 MG/0.4 ML SQ ONE (08:19)
[2022-03-22] MEDS ORDERED: CLOPIDOGREL 75 MG TABLET PO SCH (09:00)
[2022-03-22] MEDS ORDERED: ENOXAPARIN 40 MG/0.4 ML SQ SCH (09:00)
[2022-03-22] MEDS ORDERED: ASPIRIN EC 81 MG TAB PO SCH (09:00)
[2022-03-22] MEDS ORDERED: FOLIC ACID 1 MG TABLET PO SCH (09:00)
[2022-03-22 09:37] VITALS: BP 151/79; TEMP 97.7
--- NOTE | 2022-03-22 10:39 | P.DS ---
Discharge Date: 03/22/22 Disposition: ROUTINE DISCHARGE Discharge Condition: GOOD Reason for Admission: CVA Brief History of Present Illness: Patient is a 76-year-old male with past medical history of hypertension and CVA who presented to the ED with complaints of slurred slurred speech. He reports that the symptoms began 2 days ago and denies any other symptoms. He has been eating and drinking appropriately. He reports that he had a CVA back in 2013 an d also had speech deficits that never fully recovered. He has not been taking any anticoagulation. Labs unremarkable except for troponin HS of 79.3. Patient denies any chest pain. His head CT and CTA are negative. CT neck angio showed "[id number] bilateral carotid stenosis is identified, most significant at the level of the right carotid bulb where there is estimated at 50-70%." He was given 1L fluid, 324 mg aspirin, and folic acid in ED. Patient is admitted for further management. Hospital Course: Patient refused MRI. Physical he he is doing well. He ambulated well with physical therapy without any weakness displayed. Patient will need outpatient follow-up with speech therapy. Outpatient follow-up with neurology, Dr. Arango. His states he is kind of at his baseline. However, the patient states that he is still noticing his speech is a little more slurred than normal. That is his biggest complaint. He most likely did have a stroke. Thony ma had CT angiogram which revealed hard plaquing of the right carotid bulb estimated at the 50-70% based on NASCET criteria. Focal hard plaque was also seen involving the left carotid bulb with estimated narrowing based on NASCET criteria a 50%. Patient will need to be on antiplatelet therapy and statin therapy. Maintain stable blood pressure. At this time, patient is stable for discharge. Patient and his feel comfortable going home. The feels like he is at his baseline and she can manage him at home with outpatient follow-up with his PCP and a neurologist along with speech therapy. Vital Signs/Physical Exam: Temp Pulse Resp BP Pulse Ox 97.7 F 82 15 151/79 H 95 03/22/22 08:00 03/22/22 08:00 03/22/22 08:00 03/22/22 08:00 03/22/22 08:00 General: Alert, In no apparent distress, Oriented x3 Neurological: Normal gait, Normal strength at 5/5 x4 extr, Normal tone, Sensation intact, Cranial nerves 3-12 intact, Other (Slight right-sided pronator drift; downgoing Babinski's), Abnormal speech Laboratory Data at Discharge: WBC 7.30 K/uL (4.3-10.9) 03/22/22 02:35 Hgb 13.3 g/dL (13.6-17.9) L 03/22/22 02:35 Hct 39.3 % (39.6-49.0) L 03/22/22 02:35 Plt Count 206 K/uL (152-406) 03/22/22 02:35 PT 11.1 SECONDS (9.5-12.5) 03/21/22 19:42 INR 1.01 03/21/22 19:42 APTT 29.4 SECONDS (24.3-36.9) 03/21/22 19:42 Sodium 141 mmol/L (136-145) 03/22/22 02:35 Potassium 3.3 mmol/L (3.5-5.1) L 03/22/22 02:35 BUN 16 mg/dL (7-18) 03/22/22 02:35 Creatinine 0.92 mg/dL (0.55-1.3) 03/22/22 02:35 Glucose 101 mg/dL (74-106) 03/22/22 02:35 Magnesium 1.8 mg/dL (1.8-2.4) 03/22/22 02:35 Total Bilirubin 0.7 mg/dL (0.2-1.0) 03/21/22 19:42 AST 29 U/L (15-37) 03/21/22 19:42 ALT 46 U/L (12-78) 03/21/22 19:42 Alkaline Phosphatase 97 U/L (45-117) 03/21/22 19:42 Triglycerides 42 mg/dL (<150) 03/22/22 02:35 Cholesterol 109 mg/dL (<200) 03/22/22 02:35 HDL Cholesterol 73 mg/dL (40-60) H 03/22/22 02:35 Cholesterol/HDL Ratio 1.49 03/22/22 02:35 Home Medications: hydroCHLOROthiazide [Hydrodiuril*] 25 mg PO DAILY 07/05/13 Aspirin Tab [Quirino Aspirin*] 325 mg PO DAILY #30 tab 07/08/13 Folic Acid [Folic Acid*] 1 mg PO DAILY #30 tab 07/08/13 Metoprolol Tartrate [Lopressor*] 50 mg PO BID 6AM 6PM #60 tab 07/08/13 Atorvastatin Calcium [Lipitor] 40 mg PO BEDTIME #30 tab 03/22/22 Clopidogrel Bisulfate [Plavix*] 75 mg PO DAILY #30 03/22/22 New Medications: Atorvastatin Calcium [Lipitor] 40 mg PO BEDTIME #30 tab Clopidogrel Bisulfate [Plavix*] 75 mg PO DAILY #30 Physician Discharge Instructions: -DC IV and DC home -Follow-up with PCP in 1 to 2 weeks -Follow-up with Neurology in 1 to 2 weeks -Please call Dr. Harrison at [phone] if any questions regarding hospital stay -Please call nursing station at [phone] if any nursing or medication questions -Return to the emergency room if symptoms worsen Followup: Julio Mabry MD [Primary Care Provider] - Time spent managing pt's care (in minutes): 35
--- NOTE | 2022-03-22 13:56 | ECHO ---
HEIGHT: 5 ft 9 in WEIGHT: 164 lb 15.903 oz DATE OF STUDY: 03/22/[address]: Nani Hammonds 2-DIMENSIONAL: YES M.MODE: YES DOPPLER: YES COLOR FLOW: YES TDS: NO PORTABLE: YES DEFINITY: NO BUBBLE STUDY: NO DIAGNOSIS: STROKE CARDIAC HISTORY: CATHERIZATION: SURGERY: PROSTHETIC VALVE: PACEMAKER: MEASUREMENTS (cm) DIASTOLIC (NORMALS) SYSTOLIC (NORMALS) IVSd 1.1 (0.6-1.2) LA Diam 3.5 (1.9-4.0) LVEF 55-60% LVIDd 4.6 (3.5-5.7) LVIDs 3.1 (2.0-3.5) %FS 33% LVPWd 1.3 (0.6-1.2) Ao Diam 2.3 (2.0-3.7) 2 DIMENSIONAL ASSESSMENT: RIGHT ATRIUM: NORMAL LEFT ATRIUM: NORMAL RIGHT VENTRICLE: NORMAL LEFT VENTRICLE: NORMAL TRICUSPID VALVE: MILD TRICUSPID REGURGITATION MITRAL VALVE: MILD MITRAL REGURGITATION PULMONIC VALVE: NORMAL AORTIC VALVE: NORMAL PERICARDIAL EFFUSION: NONE AORTIC ROOT: NORMAL LEFT VENTRICULAR WALL MOTION: NORMAL. DOPPLER/COLOR FLOW: MILD MITRAL REGURGITATION/ MILD TRICUSPID REGURGITATION. COMMENTS: NORMAL LEFT VENTRICULAR EJECTION FRACTION 55-60%. NORMAL WALL MOTION. MILD MITRAL AND TRICUSPID REGURGITATION. TECHNOLOGIST: BLANCHE KIMBLE
--- NOTE | 2022-03-22 14:02 | EKG ---
Test Date: 2022-03-21 Test Time: 19:43:33 [employer] Assembler: THOMAS MEASUREMENT RESULTS: Intervals: Rate: 77 IN: 220 QRSD: 96 QT: 368 QTc: 416 [place]: P: 89 IN: 220 QRS: 16 T: 75 INTERPRETIVE STATEMENTS: Sinus rhythm with 1st degree AV block Incomplete right bundle branch block Septal infarct, age undetermined Abnormal ECG Compared to ECG 07/06/2013 08:02:52 First degree AV block now present Myocardial infarct finding now present Electronically Signed On 03-22-22 14:01:00 CDT by Joshua Ackerman
[2022-03-22] MEDS ORDERED: ATORVASTATIN 40 MG TAB PO SCH (21:00)
== END 2022-03-22 12:53 | disposition home or self-care (01) ==
LOC: ER 17:07 → ERHOLD 23:22
PROVIDERS: ADMIT Hospitalist; ATTEND Hospitalist
DX: I63.9 Cerebral infarction, unspecified (principal); I69.328 Other speech and language deficits following cerebral infarction; R29.701 NIHSS score 1; I10 Essential (primary) hypertension; R77.8 Other specified abnormalities of plasma proteins; Z20.822 Contact with and (suspected) exposure to COVID-19
CPT/HCPCS: 93005; 93306; 85025 ×2; 80048; 36415 ×2; 80320; 83735; 82550; 85610; 80061; 82947 ×2; 85730; 85652; 84443; 84484 ×2; 82553; 80053; 80307; 70450; 70496; 70498; 71045; 97116; 97161; 96374; 99284; 87811; Q9967; J1650; J3475; J7030 ×2; G0378 ×2